=== PATIENT | female | born 2000 | race African-American/Black ===

== ENCOUNTER 2021-03-27 14:37 | Emergency (ER) | payer OTHER ==
--- NOTE | 2021-03-27 14:39 | EDM.PDOC ---
ED HPI GENERAL MEDICAL PROBLEM - General Chief Complaint: Laceration Stated Complaint: CUT FINGER OPEN AT WORK Time Seen by Provider: 03/27/21 14:38 Source of Information: Reports: Patient History Limitations: Reports: No Limitations - History of Present Illness INITIAL COMMENTS - FREE TEXT/NARRATIVE: 20F no relevant PMHx UTD vaccinations presents for R index finger laceration. Occurred at work cutting sandwiches. Bleeding well controlled [employer] with pressure dressing. ED ROS GENERAL - Review of Systems Review Of Systems: Comprehensive ROS is negative, except as noted in HPI. ED EXAM, SKIN/RASH Exam: See Below Exam Limited By: No Limitations General Appearance: Alert, WD/WN, No Apparent Distress Ears: Hearing Grossly Normal Throat/Mouth: Normal Voice, No Airway Compromise Head: Atraumatic, Normocephalic Respiratory/Chest: No Respiratory Distress, No Accessory Muscle Use Cardiovascular: Normal Peripheral Pulses, Regular Rate, Rhythm Extremities: Normal Inspection, Other (superficial laceration to distal tip R index finger with involvement of distal nail; no FB, no nailbed involvement) Neurological: Alert, Normal Cognition, Normal Gait Psychiatric: Normal Affect, Normal Mood Skin: Warm, Dry, Intact, Normal Color Departure - Departure Time of Disposition: 14:50 Disposition: Home, Self-Care 01 Condition: Good Clinical Impression: Finger laceration Qualifiers: Encounter type: initial encounter Finger: unspecified finger Damage to nail status: with damage Foreign body presence: without foreign body Laterality: uns pecified laterality Qualified Code(s): S61.319A - Laceration without foreign body of unspecified finger with damage to nail, initial encounter - Discharge Information Instructions: Laceration Care, Adult Referrals: PCP,None [Primary Care Provider] - Forms: ED Department Discharge Additional Instructions: The following information is given to patients seen in the emergency department who are being discharged to home. This information is to outline your options for follow-up care. We provide all patients seen in our emergency department with a follow-up referral. The need for follow-up, as well as the timing and circumstances, are variable depending upon the specifics of your emergency department visit. If you don't have a primary care physician on staff, we will provide you with a referral. We always advise you to contact your personal physician following an emergency department visit to inform them of the circumstance of the visit and for follow-up with them and/or the need for any referrals to a consulting specialist. The emergency department will also refer you to a specialist when appropriate. This referral assures that you have the opportunity for follow-up care with a specialist. All of these measure are taken in an effort to provide you with optimal care, which includes your follow-up. Under all circumstances we always encourage you to contact your private physician who remains a resource for coordinating your care. When calling for follow-up care, please make the office aware that this follow-up is from your recent emergency room visit. If for any reason you are refused follow-up, please contact the [facility] Emergency Department at and asked to speak to the emergency department charge nurse. Please follow up with your primary care physician. If you do not have a primary care physician, see below: [facility] [address] [place] [address] [phone] [facility] [address] [place] [address] [id number] [facility] [address] [place] [id number]
== END 2021-03-27 15:08 | disposition home or self-care (01) ==
LOC: MW.ED 14:37
DX: S61.210A Laceration without foreign body of right index finger without damage to nail, initial encounter (principal); Y99.0 Civilian activity done for income or pay; W26.8XXA Contact with other sharp object(s), not elsewhere classified, initial encounter
CPT/HCPCS: 99282

== ENCOUNTER 2021-07-08 09:06 | Emergency (ER) | payer OTHER, MEDICAID ==
[2021-07-08] MEDS ORDERED: Octyl 2-Cyanoacrylate 1 APPLIC TUBE TOP ONE (09:23)
== END 2021-07-08 10:21 | disposition home or self-care (01) ==
LOC: MW.ED 09:06
DX: S61.012A Laceration without foreign body of left thumb without damage to nail, initial encounter (principal); Z88.8 Allergy status to other drugs, medicaments and biological substances; W26.8XXA Contact with other sharp object(s), not elsewhere classified, initial encounter; Y92.89 Other specified places as the place of occurrence of the external cause; Y99.0 Civilian activity done for income or pay
CPT/HCPCS: 12001; 99282; A9270

== ENCOUNTER 2021-11-26 21:17 | Emergency (ER) | payer MEDICAID, OTHER ==
[2021-11-26] MEDS ORDERED: Sodium Chloride 0.9% 2.5 ML Syringe FLUSH PRN (21:42)
[2021-11-26] MEDS ORDERED: Sodium Chloride 0.9% 10 ML Syringe FLUSH PRN (21:42)
[2021-11-26 22:26] LABS: CARBON DIOXIDE,CO2 23.9 mmol/L (21.0-32.0); POTASSIUM,K 3.6 mmol/L (3.5-5.1)
[2021-11-26] MEDS ORDERED: Iopamidol 755 MG/ML 500 ML Multipack Bottle IVPUSH ONE (22:48)
[2021-11-26] MEDS ORDERED: Ketorolac 30 MG/ML SDV IVPUSH ONE (23:05)
[2021-11-26] MEDS ORDERED: Morphine 4 MG/ML VIAL IVPUSH ONE (23:45)
[2021-11-26] MEDS ORDERED: Promethazine 25 MG/ML SDV IM ONE (23:49)
== END 2021-11-27 01:11 | disposition home or self-care (01) ==
LOC: MW.ED 21:17
DX: K80.50 Calculus of bile duct without cholangitis or cholecystitis without obstruction (principal); Z88.8 Allergy status to other drugs, medicaments and biological substances
CPT/HCPCS: 36415; 74177; 80053; 81025; 83690; 85025; 96372; 96374; 96375; 99285; J1885; J2270; J2550; J3490; Q9967; 99284

== ENCOUNTER 2024-12-15 07:36 | Day surgery (SDC) | payer BC, MEDICAID ==
[~2024-12-15 07:36] MED LIST: Albuterol 0.083% 2.5 MG/3 ML Neb Soln NEB PRN; Naloxone 0.4 MG/ML SDV IVPUSH PRN; Ondansetron 4 MG/2 ML SDV IVPUSH PRN; Sodium Chloride 0.9% 10 ML Syringe FLUSH PRN; Sodium Chloride 0.9% 2.5 ML Syringe FLUSH PRN; fentaNYL 50 MCG/ML SDV IVPUSH PRN
[2024-12-15] MEDS: Scopalamine 1mg/3day Transdermal Patch TOP ONE (08:00)
[2024-12-15] MEDS: Lactated Ringers 1,000 ML IV SCH (08:20)
[2024-12-15] MEDS ORDERED: Midazolam 1 MG/ML 2 ML SDV ONE (08:39)
[2024-12-15] MEDS ORDERED: fentaNYL 100 MCG/2 ML SDV ONE ×2 (08:39→09:53)
[2024-12-15] MEDS ORDERED: Propofol 200 MG/20 ML SDV ONE (08:39)
[2024-12-15] MEDS ORDERED: dexmedeTOMIDine HCl 200 MCG/2 ML SDV ONE ×2 (08:41→10:13)
[2024-12-15] MEDS ORDERED: Ropivacaine 0.5% 5 MG/ML 30 ML SDV ONE (08:43)
[2024-12-15] MEDS ORDERED: ceFAZolin 2 GM in Water For Injection, Sterile 20 ML IVPUSH ONE (09:00)
[2024-12-15] MEDS ORDERED: Ondansetron 4 MG/2 ML SDV ONE (09:36)
[2024-12-15] MEDS ORDERED: Dexamethasone 4 MG/ML 5 ML MDV ONE (09:36)
[2024-12-15] MEDS ORDERED: Ketorolac 30 MG/ML SDV ONE (10:14)
[2024-12-15] MEDS: Scopalamine 1mg/3day Transdermal Patch ONE (11:09)
== END 2024-12-15 11:50 | disposition home or self-care (01) ==
LOC: MW.SDS 07:36
PROVIDERS: ATTEND Surgery
DX: K82.8 Other specified diseases of gallbladder (principal); K80.50 Calculus of bile duct without cholangitis or cholecystitis without obstruction; E66.9 Obesity, unspecified; Z88.8 Allergy status to other drugs, medicaments and biological substances; Z68.32 Body mass index [BMI] 32.0-32.9, adult; F17.290 Nicotine dependence, other tobacco product, uncomplicated
CPT/HCPCS: 47562; 64486; 81025; A9270; J0665; J0690; J1100; J1885; J2003; J2250; J2405; J2704; J2795; J3010; J7120; 00790; 64488; J3490